=== PATIENT | male | born 1945 | race Caucasian/White ===

== ENCOUNTER 2023-02-24 07:37 | Outpatient (CLI) | payer OTHER ==
[2023-02-24 20:56] LABS: Free T4 (Free Thyroxine) 0.89 ng/dL (0.70-1.48)
== END 2023-02-24 07:38 | disposition home or self-care (01) ==
LOC: MADLAB 07:37
PROVIDERS: ATTEND Chiropractor
DX: J44.9 Chronic obstructive pulmonary disease, unspecified (principal); E03.9 Hypothyroidism, unspecified; I10 Essential (primary) hypertension
CPT/HCPCS: 36415; 71046; 84439; 84443; 84481